=== PATIENT | female | born 1955 | race Caucasian/White ===

== ENCOUNTER 2018-06-05 09:05 | Day surgery (SDC) | payer OTHER ==
[2018-06-04 12:19] VITALS: BMI 38.2
--- NOTE | 2018-06-05 01:38 | HP ---
SUBJECTIVE: This is a 63-year-old female, comes to the ED because history of dysphagia. The dysphagia is of recent onset. She has most difficulty swallowing solid foods like meat and bread. The patient has no history of difficulty drinking water. The patient has had also painful swallowing off and on. She has chronic acid reflux with heartburn, regurgitation off and on. The patient underwent EGD because of dysphagia. KNOWN ALLERGIES: 1. Dilaudid. 2. Metformin. SOCIAL HISTORY: The patient does not smoke. Does not drink alcohol also. MEDICAL ILLNESSES: 1. Obesity. 2. Hypertension. 3. Diabetes. 4. Depression. 5. Anxiety. 6. IBS. 7. Chronic acid reflux. PHYSICAL EXAMINATION: VITAL SIGNS: Pulse is 70, blood pressure 130/80. HEENT: Conjunctivae clear. CARDIOVASCULAR SYSTEM: First and second heart sounds heard. LUNGS: Clear to auscultation. ABDOMEN: Soft. No organomegaly. No tenderness. No masses. EXTREMITIES: Reveal no edema. ADMITTING DIAGNOSIS: A 63-year-old female with dysphagia. PLAN: EGD and possible dilation. Job ID: [id number]
[2018-06-05] MEDS ORDERED: PROPOFOL 200 MG/20 ML VIAL ONE (15:03)
[2018-06-05] MEDS ORDERED: Lidocaine 1% PF 5 ML VIAL ONE (15:03)
--- NOTE | 2018-06-05 17:55 | OP ---
DATE OF PROCEDURE: 06/05/2018 OPERATIVE PROCEDURES: 1. Esophagogastroduodenoscopy with biopsy. 2. Esophageal dilation with a balloon size 15 to 18 mm. 3. Esophageal dilation with a 52-[place] Simmons dilator. PREOPERATIVE DIAGNOSES: Chronic acid reflux, dysphagia. POSTOPERATIVE DIAGNOSES: 1. Normal esophageal mucosa. No esophagitis seen. 2. Questionable narrowing in the gastroesophageal junction, but no definite stricture seen. 3. Nodular gastritis of the proximal gastric body. DESCRIPTION OF PROCEDURE: The patient was placed on her left lateral position and was given sedation by Anesthesia Department. A Pentax videogastroscope under direct vision passed down the oropharynx across the GE junction into the stomach and subsequently into the descending duodenum. Although, the patient has a history of chronic acid reflux, on endoscopy the mucosa appears normal throughout. At the GE junction with questionable narrowing seen. There was no hiatus hernia seen. The fundus and cardia, no pathology. The proximal gastric body, the mucosa is irregular and nodular. Biopsy obtained of the area. The remainder of the gastric body, incisura angularis, gastric antrum, no pathology seen. The duodenal bulb, descending duodenum no pathology. The scope was withdrawn back to the stomach. A Bard balloon size 15 to 18 mm placed at the GE junction and inflated. After inflation was realized, it was really that tight. The balloons were stage 2 and also stage 3. The balloon was pushed back up across GE junction and back and forth, and there were no risks encountered. The scope and balloon removed. A 52-[place] Simmons dilator passed down with no resistance. DISCHARGE PLANNING: This is a 63-year-old female, came for an EGD because of dysphagia to solid food. She has also history of chronic acid reflux over the years. At the EGD, she had no esophagitis. Also the definite narrowing seen. A 52-[place] Simmons dilator went down with easily. She also had balloon dilation and balloon was brought across the GE junction from the stomach stage 3. DISCHARGE RECOMMENDATION: 1. Resume medications as before. 2. Weight loss stressed. 3. To come back to clinic in 2 weeks. Job ID: [id number]
== END 2018-06-05 12:57 | disposition home or self-care (01) ==
LOC: SDC 09:05
PROVIDERS: ATTEND Internal Medicine Gastroenterology
PROC: 0D758ZZ Dilation of Esophagus, Via Natural or Artificial Opening Endoscopic (ICD-10-PCS; principal; 2018-06-05)
PROC: 0DB58ZX Excision of Esophagus, Via Natural or Artificial Opening Endoscopic, Diagnostic (ICD-10-PCS; principal; 2018-06-05)
DX: R13.10 Dysphagia, unspecified (principal); K21.9 Gastro-esophageal reflux disease without esophagitis; K29.50 Unspecified chronic gastritis without bleeding; I10 Essential (primary) hypertension; E11.9 Type 2 diabetes mellitus without complications; F32.9 Major depressive disorder, single episode, unspecified; F41.9 Anxiety disorder, unspecified; K58.9 Irritable bowel syndrome, unspecified; E66.9 Obesity, unspecified; Z68.38 Body mass index [BMI] 38.0-38.9, adult; Z88.8 Allergy status to other drugs, medicaments and biological substances; Z79.84 Long term (current) use of oral hypoglycemic drugs; Z79.899 Other long term (current) drug therapy
CPT/HCPCS: 88305; 88312; J2001; J2704